=== PATIENT | female | born 1990 ===

== ENCOUNTER 2019-09-23 15:36 | Emergency (ER) | payer SELFPAY ==
[~2019-09-23] VITALS: Ht 167.6 cm; Wt 68.0 kg
--- NOTE | 2019-09-23 15:45 | NUR ---
tried to talk to pt. pt not responding, covered her face with linen. pt able to move easily in the bed.
--- NOTE | 2019-09-23 16:10 | NUR ---
Note undone in [facility] - 09/23/19 at 1653 by CHRISTY Patient discharged to home in stable condition. Written and verbal after care instructions given. . Stressed follow up or return to ER for worsening s/s. pt walks in steady gait. pt spitted on one of er staff on the way out. Addendum: 09/23/19 at 1652 by CHRISTY Amendment jay in [facility] - 09/23/19 at 1653 by CHRISTY verbal d/c provided.
--- NOTE | 2019-09-23 16:53 | NUR ---
pt walked out the er, steady gait, no sign of distress, pt spitted on one of er crew while walking out.
== END 2019-09-23 16:10 | disposition home or self-care (01) ==
LOC: ER 15:39
DX: Z00.00 Encounter for general adult medical examination without abnormal findings (principal); Z53.29 Procedure and treatment not carried out because of patient's decision for other reasons
CPT/HCPCS: A4663